=== PATIENT | male | born 1985 | race Caucasian/White ===

== ENCOUNTER 2017-03-19 15:15 | Emergency (ER) | payer OTHER ==
[~2017-03-19] VITALS: Ht 185.4 cm; Wt 93.9 kg
[2017-03-19] MEDS ORDERED: IBUPROFEN 600 MG TAB PO ONE (15:30)
[2017-03-19] MEDS ORDERED: IBUP600T26 PO (16:10)
--- NOTE | 2017-03-19 16:12 | REP ---
LEFT ANKLE, FOUR VIEWS: HISTORY: Injury. There is no acute fracture or dislocation. An ossified density is present in inferior to the medial malleolus. This represents ligamentous or tendon calcification. Soft tissue swelling is present over the lateral malleolus. IMPRESSION: There is no acute fracture or dislocation. Signed by Lucio Venegas MD 03/19/2017 04:15 P
[2017-03-19 16:39] VITALS: BP 145/79
== END 2017-03-19 16:39 | disposition home or self-care (01) ==
LOC: M ED 16:01
DX: S93.402A Sprain of unspecified ligament of left ankle, initial encounter (principal); X50.1XXA Overexertion from prolonged static or awkward postures, initial encounter; Y92.89 Other specified places as the place of occurrence of the external cause; Y93.01 Activity, walking, marching and hiking; Y99.9 Unspecified external cause status

== ENCOUNTER 2024-08-22 10:41 | Emergency (ER) | payer OTHER ==
[~2024-08-22] VITALS: Ht 185.4 cm; Wt 109.2 kg
[~2024-08-22 10:41] MED LIST: IBUP-1022 PO
[2024-08-22] MEDS: methocarbamoL 500 MG TAB PO ONE (12:13)
[2024-08-22] MEDS: KETOROLAC 60MG 2ML VIAL IM ONE (12:14)
[2024-08-22] MEDS ORDERED: METH-1164 PO (12:55)
[2024-08-22 13:24] VITALS: BP 128/74; TEMP 97.3; O2SAT 98
== END 2024-08-22 13:28 | disposition home or self-care (01) ==
LOC: M ED 10:41
DX: M62.830 Muscle spasm of back (principal)
CPT/HCPCS: 96372; 99283; J1885